=== PATIENT | male | born 1980 | race American Indian/Alaskan Native ===

== ENCOUNTER 2024-12-02 22:48 | Emergency (ER) | payer MEDICAID, SELFPAY ==
[2024-12-02 22:49] VITALS: BMI 22.0
[2024-12-02 22:56] VITALS: BP 156/99; PULSE 66; RESP 16; TEMP 36.6; O2SAT 99
--- NOTE | 2024-12-02 23:03 | EDNOTE_ITS ---
ED Dental RME/HPI General Chief complaint: Dental/Oral/Throat Stated complaint: TOOTHACHE,EAR PAIN Time Seen by Provider: 12/02/24 23:02 Source: patient Arrival date/time: 12/02/24 22:48 44-year-old male with no known medical history presents to the emergency room with a chief complaint of 10 out of 10 dental pain and swelling x 3 days Mode of arrival: ambulatory Limitations: no limitations Related Data Previous Rx's ?Medication ?Instructions ?Recorded acetaminophen 500 mg capsule 1,000 mg (2 x 500 mg) PO Q8HR PRN 05/24/20 pain #60 caps ibuprofen 800 mg tablet 800 mg PO TID PRN pain #30 tabs 05/24/20 clindamycin HCl 150 mg capsule 450 mg (3 x 150 mg) PO TID 7 days 12/02/24 #63 caps Allergies Allergy/AdvReac Type Severity Reaction Status Date / Time No Known Allergies Allergy Verified 12/02/24 22:52 Review of Systems Review of Systems Systems Reviewed: All systems reviewed, normal except as documented Constitutional Constitutional: Reports system reviewed and no additional complaints, except as documented, Denies fatigue, Denies fever(s), Denies headache(s) and Denies weakness Eyes Eyes: Reports system reviewed and no additional complaints, except as documented, Denies blurry vision and Denies change in vision ENT Ears, Nose, Mouth, and Throat: Reports system reviewed and no additional complaints, except as documented, Reports dental pain, Denies otalgia, Reports facial pain, Denies headache(s), Reports mouth pain, Denies nasal congestion, Denies throat swelling and Denies vertigo Cardiovascular Cardiovascular: Reports system reviewed and no additional complaints, except as documented, Denies chest pain, Denies dyspnea and Denies dyspnea on exertion Respiratory Respiratory: Reports system reviewed and no additional complaints, except as documented, Denies chest congestion, Denies cough, Denies dyspnea, Denies dyspnea on exertion and Denies wheezing Gastrointestinal Gastrointestinal: Reports system reviewed and no additional complaints, except as documented, Denies abdominal pain, Denies cramping, Denies nausea and Denies vomiting Genitourinary Genitourinary: Reports system reviewed and no additional complaints, except as documented, Denies dysuria and Denies hematuria Musculoskeletal Musculoskeletal: Reports system reviewed and no additional complaints, except as documented and Denies back pain Integumentary/Breasts Skin/Breast: Reports system reviewed and no additional complaints, except as documented and Denies wounds Neurologic Neurologic: Reports system reviewed and no additional complaints, except as documented, Denies confusion, Denies headache(s), Denies lack of coordination, Denies vertigo and Denies weakness Psychiatric Psychiatric: Reports system reviewed and no additional complaints, except as documented, Denies anxiety, Denies confusion, Denies depression, Denies paranoia, Denies suicidal ideation and Denies tactile hallucinations Endocrine Endocrine: Reports system reviewed and no additional complaints, except as documented and Denies fatigue Hematologic/Lymphatic Hematologic/Lymphatic: Reports system reviewed and no additional complaints, except as documented and Denies lymphadenopathy Allergic/Immunologic Allergic/Immunologic: Reports system reviewed and no additional complaints, except as documented, Denies throat swelling, Denies urticaria and Denies wheezing ED Exam General Limitations: Present no limitations General appearance: Present alert and in no apparent distress Head Head exam: Present atraumatic Eye Eye exam: Present normal appearance, PERRL and EOMI ENT ENT exam: Present normal exam, normal oropharynx and mucous membranes moist Expanded ENT Exam External ear exam: Present normal external inspection Teeth exam: Present normal inspection, dental caries, fractured tooth #, dental tenderness # and gingival swelling Teeth numbered: 2 1. Dental Tenderness Neck Neck exam: Present normal inspection, full ROM and trachea midline Chest Chest inspection: Present normal inspection and symmetric chest wall rise Respiratory Respiratory exam: Present normal lung sounds bilaterally Cardiovascular Cardiovascular exam: Present regular rate, normal rhythm and normal heart sounds Abdominal Exam Abdominal exam: Present soft and normal bowel sounds Extremities Exam Extremities exam: Present normal inspection and full ROM Back Exam Back exam: Present normal inspection and full ROM Neurological Exam Neurological exam: Present alert, oriented X3 and CN II-XII intact Psychiatric Psychiatric exam: Present normal affect and normal mood Skin Skin exam: Present warm, dry, intact and normal color Course Quality Measures none Orders Category Date Time Status Clindamycin Vial [Cleocin vial] Med 12/02/24 23:01 Discontinued 600 mg IM X1 ONE Ketorolac Inj [Toradol Inj] Med 12/02/24 23:01 Discontinued 30 mg IM X1 ONE Vital Signs Vital signs: Vital Signs Temperature 98 F 12/02/24 22:56 Pulse Rate 66 12/02/24 22:56 Respiratory Rate 16 12/02/24 22:56 Blood Pressure 156/99 H 12/02/24 22:56 Pulse Oximetry (%) 99 12/02/24 22:56 Oxygen Delivery Method Room Air 12/02/24 22:56 Dental / Oral MDM Narrative MDM Narrative:: 44-year-old male with no known medical history presents to the emergency room with a chief complaint of 10 out of 10 dental pain and swelling x 3 days clinically the patient appears nontoxic and in no apparent distress. Physical examination shows pain and tenderness to tooth #10. There is a broken tooth with dental caries. Patient states he has made an appointment with his dentist already but states he is still having pain. Pain medication and antibiotics were given to the patient patient was discharged and educated to follow-up with his dentist and return to the emergency room for any evidence of worsening signs or symptoms Patient data External records reviewed:: [facility] previous records Clinical information provided by:: patient Social determinants that could affect healthcare access:: none Patient has the following chronic illnesses:: No chronic illness How is presenting disease/condition affected by chronic disease/condition?: no chronic disease Evaluation data The following diagnostics were reviewed and interpreted by me:: lab results and radiology exam(s) Lab and/or radiology exams considered but not ordered:: Labs and radiology exams considered and ordered Interpretation Summary: N/A Medications / Prescriptions Medications or Prescriptions considered but not ordered:: Medication given Medication administrations:: Medication Administration History Discontinued Medications Clindamycin Phosphate (Clindamycin Phos Inj 150 Mg/Ml Vial 6 Ml) 600 mg IM X1 ONE Stop: 12/02/24 23:02 Last Admin: 12/02/24 23:28 Dose: 600 mg Documented By: DARIA Ketorolac Tromethamine (Ketorolac Inj 60 Mg/2 Ml Vial) 30 mg IM X1 ONE Stop: 12/02/24 23:02 Last Admin: 12/02/24 23:24 Dose: 30 mg Documented By: MP Medication given Consultations Consultation(s) initiated? (list below): No Diagnosis Dental Differential Diagnosis: dental caries, toothache and dental abscess Most likely diagnosis given after review of the tests above:: dental pain Admission Indicated Admission indicated?: not indicated Admission Request Was there a request for admission?: No Disposition Plan Disposition Plan: Discharge Discharge Attestation Discharge Attestation: The patient and all family members were given an opportunity to ask questions and understood the discharge instructions. Discharge instructions specifically effects, indications for sooner follow up or return to the emergency department, and the expected course of current diagnosis. Patient condition: Stable Discharge Plan Plan Patient Disposition: HOME (Self Care) Disposition Comment: Stable Prescriptions/Referrals Prescriptions/Med Rec: New clindamycin HCl 150 mg capsule 450 mg PO TID 7 Days Qty: 63 0RF No Action ibuprofen 800 mg tablet 800 mg PO TID PRN (Reason: pain) Qty: 30 0RF acetaminophen 500 mg capsule 1,000 mg PO Q8HR PRN (Reason: pain) Qty: 60 0RF Problem List Clinical Impression: Dental abscess Patient/Caregiver Discharge Instructions Education Materials: ED Abscess Antibiotic ... Additional Instructions: Please follow-up with your primary care provider in the next 24 to 48 hours. For any evidence of worsening signs or symptoms please return to the emergency room immediately. Antibiotics were sent to your pharmacy please pick them up and take them as indicated Print Language: Romanian Stand Alone Forms: Jessica Award Info., Patient Portal Info Letter PA/JAVI Supervising Physician ANJALI/JAVI Supervising Physician: Dr. Armenta
[2024-12-02] MEDS: KETOROLAC INJ 60 MG/2 ML VIAL 30 MG IM (23:24)
[2024-12-02] MEDS: CLINDAMYCIN PHOS INJ 150 MG/ML VIAL 6 ML 600 MG IM (23:28)
== END 2024-12-02 23:36 | disposition home or self-care (01) ==
LOC: SERX 23:59
PROVIDERS: Emergency Provider Emergency Medicine
DX: K04.7 Periapical abscess without sinus (principal)
CPT/HCPCS: 96372; 99283; J0736; J1885

== ENCOUNTER 2025-05-21 04:23 | Emergency (ER) | payer MEDICAID, SELFPAY ==
[2025-05-21 04:24] VITALS: BMI 21.2
[2025-05-21 04:52] VITALS: BP 131/85; PULSE 72; RESP 16; TEMP 37.2; O2SAT 98
--- NOTE | 2025-05-21 04:56 | XR_ITS ---
Examination: Duplex scan of the lower extremity, unilateral left complete Date and time of exam: May 21, 2025, 0524 hours INDICATIONS: Onset left leg pain today Technique: Duplex scan of the extremity veins using B-mode/grayscale imaging and Doppler spectral analysis and color flow Attention is directed to internal echogenicity, compression and augmentation involving these veins, color flow assessment, spectral analysis Findings: Major deep venous structures in the extremity demonstrate normal course and caliber. There is no evidence of deep vein thrombosis. Normal color flow and spectral analysis Impression: Negative for DVT..
[2025-05-21] MEDS: NAPROXEN 250 MG TABLET 500 MG PO (05:05)
[2025-05-21] MEDS: GABAPENTIN 300 MG CAPSULE PO (05:05)
--- NOTE | 2025-05-21 05:42 | PD.EDRME ---
Rapid Medical Screening Exam RME Arrival date/time: 05/21/25 04:23 45M with history of drug use presents to ED with 1 day of L buttock/hip pain that radiates down LLE. Patient denies fall/trauma. Chief Complaint: Extremity Problem,Nontraumatic Time Seen by Provider: 05/21/25 04:56 Vital signs: Vital Signs Temperature 99.0 F 05/21/25 04:52 Pulse Rate 72 05/21/25 04:52 Respiratory Rate 16 05/21/25 04:52 Blood Pressure 131/85 H 05/21/25 04:52 Pulse Oximetry (%) 98 05/21/25 04:52 Oxygen Delivery Method Room Air 05/21/25 04:52
--- NOTE | 2025-05-21 07:01 | PRELIM_ITS ---
Left lower extremity venous Doppler ultrasound. May 21, 2025 0524 hours Clinical history: r/o DVT Technique: Duplex scan of the left lower extremity deep venous systems was performed utilizing 2D grayscale imaging, Doppler spectral analysis and color flow Doppler and with compression. No prior study is available for comparison. Findings: Liu scale, color flow and spectral Doppler evaluation of the left lower extremity deep veins was performed. The common femoral, superficial femoral and popliteal veins are patent and compressible. Normal respiratory variation is noted. There is no evidence of occlusive or nonocclusive thrombus. The great saphenous vein is patent and compressible at the level of the saphenofemoral junction. The calf veins to the extent visualized are patent. Impression: No sonographic evidence of deep venous thrombosis in the left lower extremity. Report Electronically Signed By: Jono Cotton 05/21/2025 7:01:19 AM [EST]
--- NOTE | 2025-05-21 07:10 | EDNOTE_ITS ---
ED Extremity Problem RME/HPI General Chief complaint: Extremity Problem,Nontraumatic Stated complaint: LEFT HIP PAIN Time Seen by Provider: 05/21/25 04:56 Arrival date/time: 05/21/25 04:23 Limitations: no limitations RME / HPI RME / HPI Narrative: 05/21/25 04:23 45M with history of drug use presents to ED with 1 day of L buttock/hip pain that radiates down LLE. Patient denies fall/trauma. DR. MIN MAIN ED EVALUATION: 45 year old male presents to the Emergency Department with complaint of left hip pain onset yesterday. 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 PMHx: Denies any PMHx, surgeries, daily medications, or known allergies. Social Hx: Patient denies any tobacco, alcohol, or substance use. Related Data Previous Rx's ?Medication ?Instructions ?Recorded acetaminophen 500 mg capsule 1,000 mg (2 x 500 mg) PO Q8HR PRN 05/24/20 pain #60 caps ibuprofen 800 mg tablet 800 mg PO TID PRN pain #30 t abs 05/24/20 ciprofloxacin HCl 500 mg tablet 500 mg PO BID #20 tabs 05/21/25 Allergies Allergy/AdvReac Type Severity Reaction Status Date / Time No Known Allergies Allergy Verified 12/02/24 22:52 Review of Systems Review of Systems Systems Reviewed: All systems reviewed, normal except as documented Past Medical History Past Medical History PSYCHO/SOCIAL: Positive Recreational Drug Use and Anxiety Social History SMOKING STATUS: Never smoker SUBSTANCE USE: does not use ALCOHOL: Never ED Exam General Limitations: Present no limitations General appearance: Present alert and in no apparent distress Head Head exam: Present atraumatic, normocephalic and normal inspection Eye Eye exam: Present normal appearance, PERRL and EOMI ENT ENT exam: Present normal exam, normal oropharynx and mucous membranes moist Neck Neck exam: Present normal inspection, full ROM and trachea midline Chest Chest inspection: Present normal inspection and symmetric chest wall rise Respiratory Respiratory exam: Present normal lung sounds bilaterally Cardiovascular Cardiovascular exam: Present regular rate, normal rhythm and normal heart sounds Abdominal Exam Abdominal exam: Present soft and normal bowel sounds Expanded Lower Extremity Exam Hip/Pelvis exam: Present tenderness (tender on palpation of the lateral aspect of the left hip area) Back Exam Back exam: Present normal inspection and full ROM Neurological Exam Neurological exam: Present alert, oriented X3, CN II-XII intact and other (limping gait) Psychiatric Psychiatric exam: Present normal affect and normal mood Skin Skin exam: Present warm, dry, intact and normal color Course Quality Measures none Orders Category Date Time Status US venous doppler LE LT Stat Exams 05/21/25 04:56 Completed XR hip LT w pelvis 2-3V Stat Exams 05/21/25 07:14 Completed Ciprofloxacin HCl [Ciprofloxacin] Med 05/21/25 10:06 Discontinued 500 mg PO X1 ONE Gabapentin [Neurontin] Med 05/21/25 04:56 Discontinued 300 mg PO X1 ONE Naproxen [Naprosyn] Med 05/21/25 04:56 Discontinued 500 mg PO X1 ONE Vital Signs Vital signs: Vital Signs Temperature 99.0 F 05/21/25 04:52 Pulse Rate 72 05/21/25 04:52 Respiratory Rate 16 05/21/25 04:52 Blood Pressure 131/85 H 05/21/25 04:52 Pulse Oximetry (%) 98 05/21/25 04:52 Oxygen Delivery Method Room Air 05/21/25 04:52 Extremity Problem MDM Narrative MDM Narrative:: IAngelina am scribing for and in the presence of Dr. Min. Patient data External records reviewed:: [facility] previous records Clinical information provided by:: patient Social determinants that could affect healthcare access:: none Patient has the following chronic illnesses:: PMHx: Denies any PMHx, surgeries, daily medications, or known allergies. Social Hx: Patient denies any tobacco, alcohol, or substance use. How is presenting disease/condition affected by chronic disease/condition?: no chronic disease Evaluation data The following diagnostics were reviewed and interpreted by me:: radiology exam(s) Lab and/or radiology exams considered but not ordered:: none Interpretation Summary: Procedure(s): US venous doppler LE LT Accession Number(s): [id number] cc: William Prater MD; Yohannes Watkins MD; Colin Rice PA-C~ Examination: Duplex scan of the lower extremity, unilateral left complete Date and time of exam: May 21, 2025, 0524 hours INDICATIONS: Onset left leg pain today Technique: Duplex scan of the extremity veins using B-mode/grayscale imaging and Doppler spectral analysis and color flow Attention is directed to internal echogenicity, compression and augmentation involving these veins, color flow assessment, spectral analysis Findings: Major deep venous structures in the extremity demonstrate normal course and caliber. There is no evidence of deep vein thrombosis. Normal color flow and spectral analysis Impression: Negative for DVT.. Dictated By: Yohannes Watkins MD Procedure(s): XR hip LT w pelvis 2-3V Accession Number(s): [id number] cc: Cain Min MD; William Prater MD; Yohannes Watkins MD~ Examination:Left hip AP, lateral, AP pelvis 3 views Technique: Hip AP lateral, AP pelvis, 3 views Exam date and time:May 21, 2025, 0724 hrs. Indications:. Left hip pain today. Findings: No left hip fracture or dislocation. Right hip bones of the pelvis intact. Mild narrowing hip joints Impression: No hip or pelvic fracture. Dictated By: Yohannes Watkins MD Medications / Prescriptions Medications or Prescriptions considered but not ordered:: none Medication administrations:: Medication Administration History Discontinued Medications Ciprofloxacin (Ciprofloxacin Hcl 250 Mg Tablet) 500 mg PO X1 ONE Stop: 05/21/25 10:07 Last Admin: 05/21/25 10:36 Dose: Not Given Documented By: RAOUL Non-Admin Reason: Wrong Patient Gabapentin (Gabapentin 300 Mg Capsule) 300 mg PO X1 ONE Stop: 05/21/25 04:57 Last Admin: 05/21/25 05:05 Dose: 300 mg Documented By: MJ Naproxen (Naproxen 250 Mg Tablet) 500 mg PO X1 ONE Stop: 05/21/25 04:57 Last Admin: 05/21/25 05:05 Dose: 500 mg Documented By: MJ see above Consultations Consultation(s) initiated? (list below): No Diagnosis Extremity Problem Differential Diagnosis: other (hip pain, musculoskeletal pain, hip strain) Most likely diagnosis given after review of the tests above:: Left hip pain Admission Indicated Admission indicated?: not indicated Admission Request Was there a request for admission?: No Disposition Plan Disposition Plan: Discharge Discharge Attestation Discharge Attestation: The patient and all family members were given an opportunity to ask questions and understood the discharge instructions. Discharge instructions specifically effects, indications for sooner follow up or return to the emergency department, and the expected course of current diagnosis. Patient condition: Stable Discharge Plan Plan Patient Disposition: HOME (Self Care) Patient condition on transfer: Stable Prescriptions/Referrals Prescriptions/Med Rec: New ciprofloxacin HCl 500 mg tablet 500 mg PO BID Qty: 20 0RF No Action ibuprofen 800 mg tablet 800 mg PO TID PRN (Reason: pain) Qty: 30 0RF acetaminophen 500 mg capsule 1,000 mg PO Q8HR PRN (Reason: pain) Qty: 60 0RF Referrals: William Prater MD [Primary Care Provider] - In 1 week Problem List Clinical Impression: Pain in left hip Patient/Caregiver Discharge Instructions Additional Instructions: Take Tylenol 500 mg 2 tabs every 6 hours PLUS Advil 200 mg gel 2 tablets as needed for pain. Recommend bed rest for 3 days, no work for 3 days. Please follow-up with your primary care physician within 2-3 days. Return to the Emergency Department as needed. Print Language: Swedish Stand Alone Forms: Jessica Award Info., Work/School Release, Patient Portal Info Letter
--- NOTE | 2025-05-21 07:14 | XR_ITS ---
Examination:Left hip AP, lateral, AP pelvis 3 views Technique: Hip AP lateral, AP pelvis, 3 views Exam date and time:May 21, 2025, 0724 hrs. Indications:. Left hip pain today. Findings: No left hip fracture or dislocation. Right hip bones of the pelvis intact. Mild narrowing hip joints Impression: No hip or pelvic fracture.
== END 2025-05-21 11:03 | disposition home or self-care (01) ==
PROVIDERS: Emergency Provider Family Medicine; PCP Family Medicine
DX: M25.552 Pain in left hip (principal); M79.605 Pain in left leg
CPT/HCPCS: 73502; 93971; 99284; A9270